=== PATIENT | female | born 1965 | race Caucasian/White ===

== ENCOUNTER 2019-10-25 06:32 | Day surgery (SDC) | payer OTHER ==
[~2019-10-25 06:32] MED LIST: Lactated Ringers 1,000 ML IV SCH; Sodium Chloride 0.9% 10 ML SDV IV PRN; Sodium Chloride 0.9% 10 ML Syringe FLUSH PRN; Sodium Chloride 0.9% 2.5 ML Syringe FLUSH PRN
[2019-10-25] MEDS ORDERED: Propofol 200 MG/20 ML SDV ONE ×2 (07:06→08:13)
[2019-10-25] MEDS ORDERED: Midazolam 1 MG/ML 2 ML SDV ONE (07:06)
--- NOTE | 2019-10-25 07:32 | PCM.PREANE ---
Preanesthetic Assessment - Anesthesia/Transfusion/Family Hx Anesthesia History: Prior Anesthesia Without Reaction Family History of Anesthesia Reaction: No Transfusion History: No Prior Transfusion(s) - Review of Systems General: No Symptoms Pulmonary: No Symptoms Cardiovascular: No Symptoms Gastrointestinal: No Symptoms Neurological: No Symptoms Other: Reports: None - Physical Assessment NPO Status Date: 10/24/19 Vital Signs: Last Vital Signs Temp 97.2 F 10/25/19 06:46 Pulse 88 10/25/19 06:46 Resp 14 10/25/19 06:46 BP 109/85 10/25/19 06:46 Pulse Ox 96 10/25/19 06:46 Height: 5 ft 6 in Weight: 103.419 kg ASA Class: 1 Mental Status: Alert & Oriented x3 Airway Class: Mallampati = 2 Dentition: Reports: Normal Dentition ROM/Head Extension: Full Lungs: Clear to Auscultation, Normal Respiratory Effort Cardiovascular: Regular Rate, Regular Rhythm - Lab Values: Laboratory Last Values Urine HCG, Qual NEGATIVE (NEGATIVE) 10/25/19 06:43 - Allergies Allergies/Adverse Reactions: Allergies Allergy/AdvReac Type Severity Reaction Status Date / Time No Known Allergies Allergy Verified 10/19/19 13:51 - Blood Blood Available: No - Acknowledgements Anesthesia Type Planned: General Anesthesia Pt an Appropriate Candidate for the Planned Anesthesia: Yes Alternatives and Risks of Anesthesia Discussed w Pt/Guardian: Yes Pt/Guardian Understands and Agrees with Anesthesia Plan: Yes Additional Comments: PMH: thyroid replacement PLAN: tiva PreAnesthesia Questionnaire HEENT History: Reports: None Cardiovascular History: Reports: Other (See Below) Other Cardiovascular History: palpatations Respiratory History: Reports: Other (See Below) Other Respiratory History: is going to be set up for sleep study Gastrointestinal History: Reports: None Genitourinary History: Reports: None Musculoskeletal History: Reports: None Neurological History: Reports: None Psychiatric History: Reports: None Endocrine/Metabolic History: Reports: Hypothyroidism, Obesity/BMI 30+ Hematologic History: Reports: None Immunologic History: Reports: None Oncologic (Cancer) History: Reports: None Dermatologic History: Reports: None - Past Surgical History Head Surgeries/Procedures: Reports: None HEENT Surgical History: Reports: LASIK Cardiovascular Surgical History: Reports: None Respiratory Surgical History: Reports: None GI Surgical History: Reports: None Female Surgical History: Reports: Other (See Below) Other Female Surgeries/Procedures: exploratory laparoscopy Endocrine Surgical History: Reports: None Neurological Surgical History: Reports: None Musculoskeletal Surgical History: Reports: None Oncologic Surgical History: Reports: None Dermatological Surgical History: Reports: None - SUBSTANCE USE Smoking Status *Q: Never Smoker Recreational Drug Use History: No - HOME MEDS Home Medications: Home Meds Levothyroxine 88 mcg PO DAILY 02/21/15 [History] Propranolol HCl [Propranolol] 60 mg PO DAILY PRN 10/19/19 [History] Red Yeast Rice 1,200 mg PO DAILY 10/19/19 [History] - CURRENT (IN HOUSE) MEDS Current Meds: Current Medications Lactated Ringer's (Ringers, Lactated) 1,000 mls @ 125 mls/hr IV ASDIRECTED JOSEPH Last Admin: 10/25/19 06:55 Dose: 125 mls/hr Sodium Chloride (Saline Flush) 10 ml FLUSH ASDIRECTED PRN PRN Reason: Keep Vein Open Sodium Chloride (Saline Flush) 2.5 ml FLUSH ASDIRECTED PRN PRN Reason: Keep Vein Open Sodium Chloride (Saline Flush) 10 ml FLUSH ASDIRECTED PRN PRN Reason: Keep Vein Open Sodium Chloride (Saline Flush) 2.5 ml FLUSH ASDIRECTED PRN PRN Reason: Keep Vein Open Sodium Chloride (Normal Saline) 10 ml IV ASDIRECTED PRN PRN Reason: IV Use Discontinued Medications Midazolam HCl (Versed 1 Mg/Ml) Confirm Administered Dose 2 mg .ROUTE .STK-MED ONE Stop: 10/25/19 07:07 Propofol (Diprivan 20 Ml) Confirm Administered Dose 400 mg .ROUTE .STK-MED ONE Stop: 10/25/19 07:07
--- NOTE | 2019-10-25 08:33 | PCM.OPNOTE ---
- General Post-Op/Procedure Note Date of Surgery/Procedure: 10/25/19 Operative Procedure(s): Screening colonoscopy Findings: Sigmoid colon polyp x 2, transverse colon polyp, grade IV hemorrhoid Pre Op Diagnosis: Screening colonoscopy Post-Op Diagnosis: Grade IV hemorrhoid, sigmoid colon polyp x 2, transverse colon polyp Anesthesia Technique: MAC Primary Surgeon: Yeimi Mcintosh Condition: Good
--- NOTE | 2019-10-25 08:59 | PCM.POSTAN ---
POST ANESTHESIA ASSESSMENT - MENTAL STATUS Mental Status: Alert, Oriented - VITAL SIGNS Vital Signs: Last Vital Signs Temp 96.8 F 10/25/19 08:24 Pulse 79 10/25/19 08:38 Resp 15 10/25/19 08:38 BP 101/66 10/25/19 08:38 Pulse Ox 95 10/25/19 08:38 - RESPIRATORY Respiratory Status: Respiratory Rate WNL, Airway Patent, O2 Saturation Stable - CARDIOVASCULAR CV Status: Pulse Rate WNL, Blood Pressure Stable - GASTROINTESTINAL GI Status: No Symptoms - POST OP HYDRATION Hydration Status: Adequate & Stable
--- NOTE | 2019-10-25 09:00 | PCM48HPAN ---
Post Anesthesia Note - EVALUATION WITHIN 48HRS OF ANESTHETIC Vital Signs in Normal Range: Yes Patient Participated in Evaluation: Yes Respiratory Function Stable: Yes Airway Patent: Yes Cardiovascular Function Stable: Yes Hydration Status Stable: Yes Pain Control Satisfactory: Yes Nausea and Vomiting Control Satisfactory: Yes Mental Status Recovered: Yes Vital Signs: Last Vital Signs Temp 96.8 F 10/25/19 08:24 Pulse 79 10/25/19 08:38 Resp 15 10/25/19 08:38 BP 101/66 10/25/19 08:38 Pulse Ox 95 10/25/19 08:38
[2019-10-25 09:01] VITALS: BP 106/78; PULSE 78
--- NOTE | 2019-10-25 12:00 | OR ---
SURGEON: YEIMI MCINTOSH MD DATE OF PROCEDURE: 10/25/2019 PREOPERATIVE DIAGNOSIS: Screening colonoscopy. POSTOPERATIVE DIAGNOSES: 1. Grade 4 hemorrhoids. 2. Sigmoid colon polyps x2. 3. Transverse colon polyp x1. PROCEDURE PERFORMED: Screening colonoscopy with polypectomy. PRIMARY SURGEON: Yeimi Mcintosh MD. ANESTHESIA: MAC. INSTRUMENT USED: Olympus colonoscope. EXTENT OF EXAM: To the cecum. PREPARATION: Good. LIMITATIONS: None. INDICATIONS FOR EXAMINATION: The patient is a 53-year-old female who presents for screening colonoscopy. I explained the procedure; expected perioperative course; and risks including bleeding, infection, or damage to surrounding structures including perforation. The patient verbalized understanding and wishes to proceed. PROCEDURE IN DETAIL: The patient was brought into the endoscopy suite and placed in a left lateral decubitus position. A time-out was completed verifying the patient's name, age, date of , allergies, and procedure to be performed. Monitored anesthesia care was induced and continuous oxygen was provided via nasal cannula throughout the procedure. After adequate sedation was achieved, a digital rectal exam was performed. This exam revealed grade 4 hemorrhoids. A well-lubricated colonoscope was inserted in the rectum and advanced under direct visualization to the level of the cecum. The cecum was identified by both visual and anatomic landmarks. A photograph was taken of the cecal cap; however, I was unable to retroflex the scope within the cecum. The scope was then fully withdrawn while examining the color, texture, anatomy, and integrity of the mucosa from the cecum to the anal canal. In the mid transverse colon, the patient had a small sessile polyp. This was removed in piecemeal fashion using cold biopsy forceps. The scope was then brought into the distal sigmoid colon, and the patient was noted to have a somewhat larger sessile sigmoid colon polyp. This was removed using a cold loop or wire loop as well as cold biopsy forceps. It was sent to pathology, labeled as sigmoid colon polyp #1. Adjacent to this was a small sessile polyp. This was removed in piecemeal fashion using cold biopsy forceps. It was labeled as sigmoid colon polyp #2. The scope was then brought in the rectum and retroflexed to allow visualization of the anal canal opening. This appeared normal and a photograph was taken. The scope was then straightened out and fully withdrawn. The cecum to anus time was 17 minutes. The patient tolerated the procedure well and was transferred to the PACU in stable condition. ENDOSCOPIC DIAGNOSES: 1. Grade 4 hemorrhoids. 2. Sigmoid colon polyps x2. 3. Transverse colon polyp x1. RECOMMENDATIONS: Follow up in clinic in 2 weeks. [place] RAYA /[id number]
== END 2019-10-25 09:03 | disposition home or self-care (01) ==
LOC: MW.SDS 06:32
PROVIDERS: ATTEND Surgery
DX: Z12.11 Encounter for screening for malignant neoplasm of colon (principal); K64.3 Fourth degree hemorrhoids; D12.3 Benign neoplasm of transverse colon; D12.5 Benign neoplasm of sigmoid colon; K63.5 Polyp of colon; E03.9 Hypothyroidism, unspecified; E66.9 Obesity, unspecified; Z68.38 Body mass index [BMI] 38.0-38.9, adult; Z68.36 Body mass index [BMI] 36.0-36.9, adult; Z79.899 Other long term (current) drug therapy
CPT/HCPCS: 45380; 81025; 88305; J2250; J2704; J7120

== ENCOUNTER 2024-11-01 09:33 | Day surgery (SDC) | payer BC ==
[2024-11-01] MEDS: Lactated Ringers 1,000 ML IV SCH (09:50)
[2024-11-01] MEDS ORDERED: propofoL 500 MG/50 ML 50 ML ONE (10:37)
[2024-11-01] MEDS ORDERED: Glycopyrrolate 0.2 MG/ML SDV ONE (11:03)
[2024-11-01] MEDS ORDERED: propofoL 500 MG/50 ML 0 ML ONE (11:16)
[2024-11-01 12:04] VITALS: BP 90/62; PULSE 71
== END 2024-11-01 12:10 | disposition home or self-care (01) ==
LOC: MW.SDS 09:33
PROVIDERS: ATTEND Surgery
DX: Z12.11 Encounter for screening for malignant neoplasm of colon (principal); D12.2 Benign neoplasm of ascending colon; K63.5 Polyp of colon; Z86.0100 Personal history of colon polyps, unspecified; I10 Essential (primary) hypertension; E78.00 Pure hypercholesterolemia, unspecified; E03.9 Hypothyroidism, unspecified; Z79.890 Hormone replacement therapy; Z79.899 Other long term (current) drug therapy
CPT/HCPCS: 45380; J1596; J2704; J7120; 00811